=== PATIENT | male | born 1985 | race Caucasian/White ===

== ENCOUNTER 2017-08-16 11:22 | Emergency (ER) | payer OTHER ==
[2017-08-16 12:53] VITALS: BP 161/106
--- NOTE | 2017-08-16 13:14 | UC ---
Skin Complaint HPI - HPI Summary HPI Summary: Pt presents with rash to b/l hands and lower arms for 1-2 months. Itchy at night. He tells me his girlfriend recently developed the same symptoms and went to her PCP who told her it was scabies and she is being treated - he is here today looking for treatment as well. Denies fever, chills, bleeding, discharge, or recent illness. - History of Current Complaint Chief Complaint: UCSkin Time Seen by Provider: 08/16/17 13:00 Stated Complaint: SKIN COMPLAINT Hx Obtained From: Patient Onset/Duration: Gradual Onset Skin Exposure Onset/Duration: Weeks Ago Timing: Constant Current Severity: None Pain Intensity: 0 - Allergy/Home Medications Allergies/Adverse Reactions: Allergies Allergy/AdvReac Type Severity Reaction Status Date / Time No Known Allergies Allergy Verified 08/16/17 12:45 Review of Systems Constitutional: Negative Skin: Rash Respiratory: Negative Cardiovascular: Negative Gastrointestinal: Negative Neurovascular: Negative Musculoskeletal: Negative Neurological: Negative Psychological: Negative All Other Systems Reviewed And Are Negative: Yes PMH/Surg Hx/FS Hx/Imm Hx Previously Healthy: Yes - Surgical History Surgical History: Yes Surgery Procedure, Year, and Place: LEFT FEMUR FX - Family History Known Family History: Positive: Unknown - Social History Occupation: Employed Full-time Lives: With Family Alcohol Use: Weekly Alcohol Amount: 5 days/weeks Substance Use Type: Marijuana Substance Use Comment - Amount & Last Used: occasionally Smoking Status (MU): Current Every Day Smoker Type: Cigarettes Amount Used/How Often: 1/2 PPD Physical Exam - Summary Physical Exam Summary: GENERAL: NAD. WDWN. No pain distress. SKIN: Multiple linear burrows and 1-2mm scabs on the dorsal aspect of b/l hands including the web spaces. No edema, bleeding, or discharge. NECK: Supple. Nontender. No lymphadenopathy. CHEST: CTAB. No r/r/w. No accessory muscle use. Breathing comfortably and in no distress. CV: RRR. Without m/r/g. Pulses intact. Brisk cap refill. NEURO: Alert. CN II-XII grossly intact. PSYCH: Age appropriate behavior. Triage Information Reviewed: Yes Vital Signs: Initial Vital Signs Temp 98.6 F 08/16/17 12:46 Pulse 90 08/16/17 12:46 Resp 16 08/16/17 12:46 BP 161/106 08/16/17 12:46 Pulse Ox 98 08/16/17 12:46 Course/Dx - Course Course Of Treatment: Seeing PCP sunday for his bp. Recheck BP was 150/85 manual. Suspect scabies - rx for permethrin - Diagnoses Provider Diagnoses: Scabies Discharge - Sign-Out/Discharge Documenting (check all that apply): Discharge - Discharge Plan Condition: Stable Disposition: HOME Prescriptions: Permethrin 5% CREAM* 1 applic TOPICAL SEE INSTRUCTIONS #2 tube Patient Education Materials: Scabies (ED) Referrals: No Primary Care Phys,NOPCP [Primary Care Provider] - Additional Instructions: If you develop a fever, shortness of breath, chest pain, new or worsening symptoms - please call your PCP or go to the ED. Your blood pressure was high at todays visit. Please see your primary provider within 4 weeks for recheck and re-evaluation. - Billing Disposition and Condition Condition: STABLE Disposition: HOME
== END 2017-08-16 13:44 | disposition home or self-care (01) ==
LOC: UCCORT 11:22
DX: B86 Scabies (principal); F17.210 Nicotine dependence, cigarettes, uncomplicated
CPT/HCPCS: 99202; G0463

== ENCOUNTER 2018-11-16 11:31 | Emergency (ER) | payer OTHER ==
[2018-11-16 12:11] VITALS: BP 115/67
--- NOTE | 2018-11-16 12:14 | UC ---
FLU HPI - HPI Summary HPI Summary: Reports 5 days of fever, malaise, fatigue, cruz. denies sick contacts. when asked about any rashes he thinks he has a yeast rash in his R arm pit. denies tick bites , sore throat, diarrhea. - History of Current Complaint Chief Complaint: UCGeneralIllness Stated Complaint: FEVER,CRUZ Time Seen by Provider: 11/16/18 12:10 Hx Obtained From: Patient Pain Intensity: 0 Pain Scale Used: 0-10 Numeric Associated Signs & Symptoms: Positive: Fever - Allergy/Home Medications Allergies/Adverse Reactions: Allergies Allergy/AdvReac Type Severity Reaction Status Date / Time No Known Allergies Allergy Verified 11/16/18 12:12 Home Medications: Home Medications Ibuprofen 400 mg PO Q6HR PRN 11/16/18 [History Confirmed 11/16/18] PMH/Surg Hx/FS Hx/Imm Hx - Additional Past Medical History Additional PMH: no chronic condition. Previously Healthy: Yes - Surgical History Surgical History: Yes Surgery Procedure, Year, and Place: LEFT FEMUR FX - Family History Known Family History: Positive: Unknown - Social History Alcohol Use: Daily Alcohol Amount: 5 days/weeks Substance Use Type: Marijuana Substance Use Comment - Amount & Last Used: occasionally Smoking Status (MU): Current Every Day Smoker Type: Cigarettes Amount Used/How Often: 1/2 PPD Review of Systems All Other Systems Reviewed And Are Negative: Yes Constitutional: Positive: Fever, Chills, Fatigue Skin: Positive: Rash Respiratory: Positive: Negative Cardiovascular: Positive: Negative Genitourinary: Negative: Other - denies decrease in urination Musculoskeletal: Negative: Arthralgia, Myalgia Neurological: Positive: Headache, Weakness. Negative: Paresthesia, Numbness Physical Exam Triage Information Reviewed: Yes Appearance: Well-Appearing Vital Signs: Initial Vital Signs Temp 98.8 F 11/16/18 12:04 Pulse 99 11/16/18 12:04 Resp 16 11/16/18 12:04 BP 115/67 11/16/18 12:04 Pulse Ox 99 11/16/18 12:04 Vital Signs Reviewed: Yes Eyes: Positive: Conjunctiva Clear ENT: Positive: Pharynx normal, TMs normal Neck: Positive: Supple, Nontender, No Lymphadenopathy Respiratory Exam: Normal Cardiovascular Exam: Normal Neurological: Positive: Alert, Muscle Tone Normal Skin: Positive: Rashes - R upper ribs near axilla has large circular patch of redness, nontender and no pruritus. no open areas. Rings has different degrees of redness. Flu Course/Dx - Course Course Of Treatment: Fever, cruz, malaise Acute w/ erythema migrans he thought was a yeast rash at R arm pit. rapid flu neg. Lyme suspected and will tx w/ doxy. This is endemic area and he has been exposed to ticks. Vitals are good and we discussed other concerning symptoms he should seek further care for. - Differential Dx/Diagnosis Differential Diagnosis/HQI/PQRI: Influenza, Upper Respiratory Infection, Other Provider Diagnosis: Acute Lyme disease Discharge - Sign-Out/Discharge Documenting (check all that apply): Patient Departure All imaging exams completed and their final reports reviewed: No Studies - Discharge Plan Condition: Good Disposition: HOME Prescriptions: DOXYcycline CAP(*) [DOXYcycline 100MG CAP(*)] 100 mg PO BID 14 Days #28 cap Patient Education Materials: Lyme Disease (ED) Referrals: No Primary Care Phys,NOPCP [Primary Care Provider] - Additional Instructions: please follow up with primary care for testing of lyme if you would like. it is reasonable to treat given your constellation of symptoms. - Billing Disposition and Condition Condition: GOOD Disposition: Home - Attestation Statements Provider Attestation: Per institutional requirements, I have reviewed the chart, however, I was not consulted specifically or made aware of this patient by the midlevel provider. I did not personally evaluate, interact with , or disposition this patient.
[2018-11-16 12:43] LABS: Influenza A Molecular NEGATIVE (Negative); Influenza B Molecular NEGATIVE (Negative)
== END 2018-11-16 12:48 | disposition home or self-care (01) ==
LOC: UCCORT 11:31
DX: A69.20 Lyme disease, unspecified (principal); F17.210 Nicotine dependence, cigarettes, uncomplicated
CPT/HCPCS: 99212; G0463